=== PATIENT | female | born 1975 | race Caucasian/White ===

== ENCOUNTER 2018-06-14 01:08 | Emergency (ER) | payer SELFPAY ==
[~2018-06-14] VITALS: Ht 157.5 cm; Wt 60.8 kg
[2018-06-14 01:16] VITALS: Ht 157.5 cm; Wt 60.8 kg
[2018-06-14 02:19] VITALS: BP 108/73
== END 2018-06-14 02:19 | disposition home or self-care (01) ==
LOC: ED 01:08
DX: S86.911A Strain of unspecified muscle(s) and tendon(s) at lower leg level, right leg, initial encounter (principal); Z90.89 Acquired absence of other organs; X50.1XXA Overexertion from prolonged static or awkward postures, initial encounter; Y93.89 Activity, other specified; Y92.89 Other specified places as the place of occurrence of the external cause; Y99.8 Other external cause status
CPT/HCPCS: J1885

== ENCOUNTER 2019-02-13 21:09 | Emergency (ER) | payer SELFPAY ==
[~2019-02-13] VITALS: Ht 157.5 cm; Wt 59.9 kg
[2019-02-13 21:24] VITALS: Ht 157.5 cm; Wt 59.9 kg
[2019-02-13 23:48] VITALS: BP 117/66
== END 2019-02-13 23:48 | disposition home or self-care (01) ==
LOC: ED 21:09
DX: T78.40XA Allergy, unspecified, initial encounter (principal); Z90.89 Acquired absence of other organs; X58.XXXA Exposure to other specified factors, initial encounter
CPT/HCPCS: J0171; J1200

== ENCOUNTER 2020-07-08 09:38 | Emergency (ER) | payer OTHER ==
[~2020-07-08] VITALS: Ht 157.5 cm; Wt 57.2 kg
[2020-07-08 09:47] VITALS: BP 145/72; Ht 157.5 cm; Wt 57.2 kg
== END 2020-07-08 11:31 | disposition home or self-care (01) ==
LOC: ED 09:38
DX: S05.01XA Injury of conjunctiva and corneal abrasion without foreign body, right eye, initial encounter (principal); T20.10XA Burn of first degree of head, face, and neck, unspecified site, initial encounter; Z90.89 Acquired absence of other organs; X08.8XXA Exposure to other specified smoke, fire and flames, initial encounter; Y93.89 Activity, other specified; Y92.89 Other specified places as the place of occurrence of the external cause; Y99.8 Other external cause status